=== PATIENT | male | born 1975 | race Two or more races ===

== ENCOUNTER → 2017-06-22 | Outpatient (CLI) | payer BC ==
[~2017-06-22] MED LIST: IOPAMIDOL (ISOVUE-300) 100 ML BTL ONE
== END ==
LOC: CIMAGING 08:13
PROVIDERS: ATTEND Family Medicine
DX: K43.9 Ventral hernia without obstruction or gangrene (principal)
CPT/HCPCS: 74160-PO; Q9967

== ENCOUNTER 2017-08-18 08:10 | Day surgery (SDC) | payer BC, OTHER ==
--- NOTE | 2017-08-18 07:08 | PDHPUP ---
History & Physical Update H&P update statement: This history and physical update is based on an assessment of the patient which was completed after admission or registration (within 24 hours), but prior to the surgery/procedure. updated
[2017-08-18] MEDS ORDERED: LR 1,000 ML IV ONE (08:37)
[2017-08-18] MEDS ORDERED: ceFAZolin 2 GM/DEXTROSE 100 ML IV ONE (08:37)
[2017-08-18 08:52] VITALS: PULSE 63
[2017-08-18] MEDS ORDERED: ceFAZolin 2 GM/SWFI 2 GM/20 ML SYR IVP ONE (09:00)
[2017-08-18] MEDS ORDERED: BUPIVACAINE 0.5% 30 ML SDV ONE (09:06)
[2017-08-18] MEDS ORDERED: OXYCODONE/APAP 5/325 TAB PO PRN (10:24)
[2017-08-18] MEDS ORDERED: PROMETHAZINE HCL 25 MG/ML INJ IVP PRN (10:24)
[2017-08-18] MEDS ORDERED: NALOXONE HCL 0.4 MG/ML INJ IVP PRN (10:24)
--- NOTE | 2017-08-18 10:24 | PDANEPAE ---
ANE History of Present Illness 41 year old otherwise healthy male with no significant PMH who presents with a ventral hernia after a fitness boot camp. He has had anesthesia for a collar bone repair with no complications. No meds, denies URI last 6 weeks. ANE Past Medical History - Cardiovascular History Hx Hypertension: No Hx Arrhythmias: No Hx Chest Pain: No Hx Coronary Artery / Peripheral Vascular Disease: No Hx CHF / Valvular Disease: No Hx Palpitations: No - Pulmonary History Hx COPD: No Hx Asthma/Reactive Airway Disease: No Hx Recent Upper Respiratory Infection: No Hx Oxygen in Use at Home: No Hx Sleep Apnea: No Sleep Apnea Screening Result - Last Documented: Positive - Neurologic History Hx Cerebrovascular Accident: No Hx Seizures: No Hx Dementia: No - Endocrine History Hx Diabetes: No - Renal History Hx Renal Disorders: No - Liver History Hx Hepatic Disorders: No - Neurological & Psychiatric Hx Hx Neurological and Psychiatric Disorders: No - Cancer History Hx Cancer: No - Congenital Disorder History Hx Congenital Disorders: No - GI History Hx Gastrointestinal Disorders: No - Other Health History Other Health History: NEG - Chronic Pain History Chronic Pain: No - Surgical History Prior Surgeries: CLAVICLE REPAIR X2. FINGER FX - REPAIR ANE Review of Systems Review of Systems: - Exercise capacity METS (RN): 5 METS ANE Patient History - Allergies Allergies/Adverse Reactions: No Known Allergies Allergy (Verified 08/18/17 08:49) - Home Medications Home Medications: NK [No Known Home Meds] 08/17/17 [Last Taken Unknown] - NPO status NPO Since - Liquids (Date): 08/17/17 NPO Since - Liquids (Time): 19:00 NPO Since - Solids (Date): 08/17/17 NPO Since - Solids (Time): 19:00 - Smoking Hx Smoking Status: Never smoked - Family Anes Hx Family Hx Anesthesia Complications: NEG ANE Labs/Vital Signs - Vital Signs Blood Pressure: 130/86 Heart Rate: 63 Respiratory Rate: 14 O2 Sat (%): 96 Height: 172.72 cm Weight: 72.575 kg ANE Physical Exam - Airway Neck exam: FROM Mallampati Score: Class 1 Mouth exam: normal dental/mouth exam - Pulmonary Pulmonary: no respiratory distress - Cardiovascular Cardiovascular: regular rate and rhythym - ASA Status ASA Status: I
--- NOTE | 2017-08-18 10:24 | POSTANESTH ---
Post Anesthetic Evaluation Cardiovascular Status: Normal, Stable Respiratory Status: Normal, Stable Level of Consciousness/Mental Status: Can Participate in Eval Pain Control: Adequate, Prn Tx Ordered Complications Possibly Related to Anesthesia: None Noted
[2017-08-18] MEDS ORDERED: fentaNYL 100 MCG/2 ML INJ ONE (10:36)
[2017-08-18] MEDS: fentaNYL 100 MCG/2 ML INJ IVP PRN ×3 (10:38→11:36)
--- NOTE | 2017-08-18 10:54 | POSTOPPROG ---
Post Op Note Date of Operation: 08/18/17 Surgeon: García Mejia Investment Strategist: Derik Banda Anesthesiologist: Tone Anesthesia: GET(General Endotracheal) Pre-op Diagnosis: ventral hernia Post-op Diagnosis: same Indication: pain Procedure: open ventral repair (no mesh) Findings: hernia Inf/Abcess present in the surg proc area at time of surgery?: No Depth: Deep Incisional (Fascial) EBL: Minimal
[2017-08-18 11:49] VITALS: TEMP 97.7
[2017-08-18 11:51] VITALS: RESP 16
[2017-08-18 14:14] VITALS: BP 118/76; O2SAT 95
--- NOTE | 2017-08-18 14:30 | POSTANESTH ---
Post Anesthetic Evaluation Cardiovascular Status: Normal, Stable Respiratory Status: Normal, Stable Level of Consciousness/Mental Status: Can Participate in Eval Pain Control: Adequate, Prn Tx Ordered Nausea/Vomiting Control: Adequate, Prn Tx Ordered Complications Possibly Related to Anesthesia: None Noted
--- NOTE | 2017-08-20 04:30 | GOP ---
[f rep st] OPERATIVE REPORT DATE OF OPERATION: SURGEON: García Mejia MD CANE SPLICER: ELIZABETH Jackson ANESTHESIOLOGIST: Charleen Wayne MD PREOPERATIVE DIAGNOSIS: Ventral hernia. POSTOPERATIVE DIAGNOSIS: Ventral hernia. PROCEDURE PERFORMED: Open repair of a small ventral hernia. FINDINGS: The patient was found to have a less than 1 cm midline fascial defect with some omental fa t within the defect. DESCRIPTION OF PROCEDURE: The patient was taken to the operating room where he received satisfactory general endotracheal anesthesia by Dr. Wayne. He was placed in supine position, prepped and draped in the usual sterile fashion. A longitudinal incision was made over the palpable mass, which was kanwal te large. This was dissected free from surrounding subcutaneous tissue and off the back of the skin. However, it tapered down to a very small, less than 1 cm, fascial defect. The sac was opened at th e edge of the fascia. At that point, the omental tissue was ligated with a 2-0 Vicryl tie and then a mputated. The large piece of fat that was stuck in the hernia was removed and the stump was then eas ranjan reduced. The wound then was closed with interrupted 0 Ethibond [id number] sutures. Wounds were infiltrated with 0.5% Marcaine. Subcu was closed with 3-0 Vicryl and the skin with a 4-0 Monocr yl subcuticular stitch. There were no complications. Blood loss negligible. /[id number]/MODL
== END 2017-08-18 13:55 | disposition home or self-care (01) ==
LOC: FSGY 08:10
PROVIDERS: ATTEND Surgery
PROC: 0WQF0ZZ Repair Abdominal Wall, Open Approach (ICD-10-PCS; principal; 2017-08-18 09:45)
DX: K43.9 Ventral hernia without obstruction or gangrene (principal); Z87.442 Personal history of urinary calculi
CPT/HCPCS: J0690; J3010

== ENCOUNTER → 2018-05-12 | Outpatient (CLI) | payer OTHER | LOC: CIMAGING 09:16 | PROVIDERS: ATTEND Family Medicine | DX: M79.642 Pain in left hand (principal); Y93.55 Activity, bike riding | CPT/HCPCS: 73130-PO ==